=== PATIENT | male | born 1935 | race Caucasian/White ===

== ENCOUNTER 2018-05-03 13:09 | Emergency (ER) | payer OTHER ==
[2018-05-03 13:15] VITALS: BP 198/110; PULSE 76; TEMP 98; BMI 25.1
--- NOTE | 2018-05-03 13:42 | PDOC ---
History of Present Illness - General Chief Complaint: Edema Stated Complaint: BODYACHES, SWELLING (PCP SENT) Time Seen by Provider: 05/03/18 13:41 - History of Present Illness Initial Comments: 05/03/18 13:42 Mr. Hoyos is an 82 yo male w/ pmh of appendectomy and cholecystectomy who presents for evaluation of several week history of left sided swelling. He reports it started below his left arm and has extended to include his left breast and left upper abdomen. Patient reports his skin feels "tight" but non- tender in these locations. Patient has discussed case with PCP and had breast axilla US, CT, and breast MRI for evaluation. All were negative however US/MRI revealed intramammary lymph node. Patient reported he contacted PCP this morning due to abdominal swelling as well which prompted his arrival. The patient denies chest pain, shortness of breath, headache and dizziness. Denies fever, chills, nausea, vomit, diarrhea and constipation. Denies dysuria, frequency, urgency and hematuria. Allergies: Morphine Past History - Past Medical History Allergies/Adverse Reactions: Allergies Allergy/AdvReac Type Severity Reaction Status Date / Time morphine Allergy Verified 05/03/18 13:15 Home Medications: Ambulatory Orders No Home Medications 0 dose .ROUTE UTDICT 02/14/14 COPD: No Hypercholesterolemia: Yes - Surgical History Appendectomy: Yes Cholecystectomy: Yes - Suicide/Smoking/Psychosocial Hx Smoking History: Never smoked Have you smoked in the past 12 months: No Information on smoking cessation initiated: No Hx Alcohol Use: No Substance Use Type: None Review of Systems - Review of Systems Comments:: 05/03/18 14:02 GENERAL/CONSTITUTIONAL: No fever or chills. No weakness. HEAD, EYES, EARS, NOSE AND THROAT: No change in vision. No ear pain or discharge. No sore throat. CARDIOVASCULAR: +Left breast tenderness. No shortness of breath RESPIRATORY: No cough, wheezing, or hemoptysis. GASTROINTESTINAL: No nausea, vomiting, diarrhea or constipation. GENITOURINARY: No dysuria, frequency, or change in urination. MUSCULOSKELETAL: +Left arm and left leg increasing/decreasing alternating swelling. No joint or muscle swelling or pain. No neck or back pain. SKIN: No rash NEUROLOGIC: No headache, vertigo, loss of consciousness, or change in strength/ sensation. ENDOCRINE: No increased thirst. No abnormal weight change HEMATOLOGIC/LYMPHATIC: No anemia, easy bleeding, or history of blood clots. ALLERGIC/IMMUNOLOGIC: No hives or skin allergy. *Physical Exam - Vital Signs Last Vital Signs Temp Pulse Resp BP Pulse Ox 98.0 F 76 18 198/110 96 05/03/18 13:11 05/03/18 13:11 05/03/18 13:11 05/03/18 13:11 05/03/18 13:11 - Physical Exam Comments: 05/03/18 14:02 GENERAL: Awake, alert, and fully oriented, in no acute distress HEAD: No signs of trauma, normocephalic, atraumatic EYES: PERRLA, EOMI, sclera anicteric, conjunctiva clear ENT: Auricles normal inspection, hearing grossly normal, nares patent, oropharynx clear without exudates. Moist mucosa NECK: Normal ROM, supple, no lymphadenopathy, JVD, or masses LUNGS: +Left breast point tender upper-lateral area. Left breast minimally increased in size from right. No distress, speaks full sentences, clear to auscultation bilaterally HEART: Regular rate and rhythm, normal S1 and S2, no murmurs, rubs or gallops, peripheral pulses normal and equal bilaterally. ABDOMEN: Soft, nontender, normoactive bowel sounds. No guarding, no rebound. No masses EXTREMITIES: Normal inspection, Normal range of motion, no edema. No clubbing or cyanosis. NEUROLOGICAL: Cranial nerves II through XII grossly intact. Normal speech, normal gait, no focal sensorimotor deficits SKIN: Warm, Dry, normal turgor, no rashes or lesions noted. Medical Decision Making - Medical Decision Making 05/03/18 14:30 Mr. Hoyos is an 82 yo male w/ pmh as described who presents for evaluation of left breast pain/swelling as described. Evaluated patient as above; discussed with PCP and believe patient would be best served with breast surgery follow- up. EKG ordered to r/o any cardiac causes. *DC/Admit/Observation/Transfer Diagnosis at time of Disposition: Breast pain, left, Breast swelling - Discharge Dispostion Disposition: HOME - Referrals Referrals: Shira Angelo MD [Staff Physician] - - Patient Instructions Additional Instructions: You were evaluated today in the ER for your breast pain. Please follow-up with breast surgeon for further evaluation as discussed. Return to ER if any fever, chills, increase in pain, swelling, or any other concerning symptoms. - Post Discharge Activity
--- NOTE | 2018-05-03 14:17 | PDOC ---
Attending Attestation - Resident Resident Name: Khang Rdz - ED Attending Attestation I have performed the following: I have examined & evaluated the patient, The case was reviewed & discussed with the resident, I agree w/resident's findings & plan, Exceptions are as noted - HPI HPI: 05/06/18 02:13 82 y/o male presents with reccurent left breast swelling. Doppler US, MRI of breast and ct show no masses, reactive lymphadenopathy noted - Physicial Exam PE: 05/03/18 15:40 Patient is awake and alert, well-appearing, in no distress PERRLA, EOMI CTA RRR Abdomen soft, nontender, nondistended + Left gynecomastia, no axillary lymphadenopathy is appreciated There is no upper or lower extremity edema - Medical Decision Making 05/03/18 15:42 Patient is a well-appearing 82-year-old male who presents with recurrent left gynecomastia without associated lymphadenopathy or lymphadenitis. Previously performed MRI showed 3 small inframammary reactive lymph nodes but no solid masses. No acute issues are present. Will discharge with breast surgery follow- up.
--- NOTE | 2018-05-04 14:22 | EKG ---
Test Reason : Blood Pressure : / mmHG Vent. Rate : 060 BPM Atrial Rate : 060 BPM P-R Int : 260 ms QRS Dur : 138 ms QT Int : 450 ms P-R-T Axes : 033 -08 031 degrees QTc Int : 450 ms SINUS RHYTHM WITH 1ST DEGREE A-V BLOCK RIGHT BUNDLE BRANCH BLOCK ABNORMAL ECG WHEN COMPARED WITH ECG OF 14-FEB-2014 11:39, NO SIGNIFICANT CHANGE WAS FOUND Confirmed by MURTAZA DANGELO MD ([id number]) on 05/04/2018 2:22:48 PM Referred By: Confirmed By:MURTAZA DANGELO MD
== END 2018-05-03 14:55 | disposition home or self-care (01) ==
LOC: JER 13:09
DX: R19.02 Left upper quadrant abdominal swelling, mass and lump (principal); N63.0 Unspecified lump in unspecified breast; N64.4 Mastodynia; E78.00 Pure hypercholesterolemia, unspecified
CPT/HCPCS: 93005; 93010; 99281-25; 99282-25